=== PATIENT | female | born 1960 | race Caucasian/White ===

== ENCOUNTER 2017-07-24 06:41 | Emergency (ER) | payer OTHER ==
[~2017-07-24] VITALS: Ht 157.5 cm; Wt 67.1 kg
[2017-07-24] MEDS ORDERED: ESCITALOPRAM OX20 MG PO (07:03)
[2017-07-24] MEDS ORDERED: ZITHROMAX250 MG PO (07:21)
[2017-07-24] MEDS ORDERED: METHYLPREDNISOLO4 M1 PO (07:21)
== END 2017-07-24 07:31 | disposition home or self-care (01) ==
LOC: ED 06:41
DX: H83.02 Labyrinthitis, left ear (principal); F32.9 Major depressive disorder, single episode, unspecified; Z88.0 Allergy status to penicillin; Z79.899 Other long term (current) drug therapy
CPT/HCPCS: 99283

== ENCOUNTER 2021-01-20 14:31 | Emergency (ER) | payer OTHER ==
[~2021-01-20] VITALS: Ht 157.5 cm; Wt 68.0 kg
[~2021-01-20 14:31] MED LIST: ESCITALOPRAM OX20 MG PO; MECLIZINE HCL25 MG PO; METHYLPREDNISOLO4 M1 PO; PREDNISONE20 MG PO; VALIUM5 MG PO; ZITHROMAX250 MG PO
[2021-01-20] MEDS ORDERED: LISINOPRIL20 MG PO (14:48)
[2021-01-20] MEDS ORDERED: LEXAPRO20 MG PO (14:48)
== END 2021-01-20 17:11 | disposition home or self-care (01) ==
LOC: ED 14:31
DX: M54.5 Low back pain (principal); I10 Essential (primary) hypertension; Z88.0 Allergy status to penicillin; Z79.899 Other long term (current) drug therapy
CPT/HCPCS: 81001; 99283

== ENCOUNTER 2022-02-23 07:49 | Emergency (ER) | payer OTHER ==
[~2022-02-23] VITALS: Ht 157.5 cm; Wt 68.0 kg
[~2022-02-23 07:49] MED LIST changes: +LEXAPRO20 MG PO; +LISINOPRIL20 MG PO
--- NOTE | 2022-02-23 13:44 | EKG ---
[facility] [address] [facility] [place] [address] Signed Normal sinus rhythm with sinus arrhythmia Low voltage QRS Cannot rule out Anterior infarct , age undetermined Abnormal ECG When compared with ECG of 02-MAY-2019 04:47, T wave inversion more evident in Anterior leads Confirmed by ITZEL RO MD ([id number]) on 02/23/2022 1:44:33 PM Electronically Signed By: ITZEL RO MD 02/23/22 1344 PATIENT NAME: BRENDA RIOS MARIXA Electrocardiogram DATE OF : 58 PHYSICIAN: ITZEL RO MD REPORT #: [id number] REPORT IS CONFIDENTIAL AND NOT TO BE RELEASED WITHOUT AUTHORIZATION
== END 2022-02-23 09:45 | disposition home or self-care (01) ==
LOC: ED 07:49
DX: E86.0 Dehydration (principal); R73.9 Hyperglycemia, unspecified; I10 Essential (primary) hypertension; Z88.0 Allergy status to penicillin; Z79.899 Other long term (current) drug therapy
CPT/HCPCS: 36415; 71045; 80053; 81001; 83036; 83735; 84484; 85025; 93005; 93010; 99284-25; J7030

== ENCOUNTER 2023-02-02 10:05 | Emergency (ER) | payer OTHER ==
[~2023-02-02] VITALS: Ht 157.5 cm; Wt 67.4 kg
[2023-02-02] MEDS ORDERED: HYDROCHLOROTH12.5 MG PO (10:23)
[2023-02-02] MEDS ORDERED: MECLIZINE HCL25 MG PO (12:18)
[2023-02-02 12:32] VITALS: BP 145/82
--- NOTE | 2023-02-02 22:12 | EKG ---
[facility] [address] [facility] [place] [address] Signed Normal sinus rhythm Low voltage QRS Borderline ECG When compared with ECG of 23-FEB-2022 08:10, Nonspecific T wave abnormality, improved in Anterior leads Confirmed by Ann Sneed MD () on 02/02/2023 10:12:40 PM Electronically Signed By: ANN SNEED MD 02/02/232211 PATIENT NAME: BRENDA RIOS MARIXA Electrocardiogram DATE OF : 58 PHYSICIAN: ANN SNEED MD REPORT #: [id number] REPORT IS CONFIDENTIAL AND NOT TO BE RELEASED WITHOUT AUTHORIZATION
== END 2023-02-02 12:34 | disposition home or self-care (01) ==
LOC: ED 10:05
DX: H81.11 Benign paroxysmal vertigo, right ear (principal); I10 Essential (primary) hypertension; Z88.0 Allergy status to penicillin; Z79.899 Other long term (current) drug therapy
CPT/HCPCS: 36415; 80053; 83735; 84484; 85025; 93005; 93010; 99284-25; A9270